=== PATIENT | female | born 1945 | race Caucasian/White ===

== ENCOUNTER 2017-06-15 14:27 | Observation (INO) | payer MEDICARE ==
[~2017-06-15] VITALS: Ht 160 cm; Wt 82.5 kg
[~2017-06-15 14:27] MED LIST: AMPH1TAB36 PO; CHLORPHENIRAMINE PO; CYMB60CA PO; DEXAMETHASONE SOD PHOS 4 MG/ML VIAL IV ONE; ESTR1 PO; GLYCOPYRROLATE 1 MG/5 ML SYRINGE IV PUSH ONE; LACTATED RINGER'S 1000 ML INJ 1,000 ML IV ONE; LIDOCAINE HCL 1% PF 5 ML SYRINGE OTHER ONE; LOVA1TAB47 PO; MONT4CHW2; NEOSTIGMINE 5 MG/5 ML SYRINGE IV PUSH ONE; OMEP20CA5 PO; ONDANSETRON HCL 4 MG/2 ML VIAL IV ONE; PHENYLEPH/NS 1000 MCG/10 ML SYR IV ONE; PROPOFOL 200 MG/20 ML AMP IV ONE; ROCURONIUM INJ 50 MG/5 ML SYRINGE IV PUSH ONE; THYR15 PO; TRAM50 PO; TRAZ50TA78 PO
[2017-06-15 14:28] VITALS: BP 149/64; PULSE 102; RESP 18; TEMP 99.1; O2SAT 98
--- NOTE | 2017-06-15 14:54 | PD ---
HPI Chief Complaint: Abdominal Pain Time Seen by Provider: 14:40 Travel History International Travel<30 days: No Contact w/Intl Traveler<30days: No Traveled to known affect area: No History of Present Illness HPI 71-year-old female with history of fibromyalgia and hypertension presents for evaluation of right lower quadrant abdominal pain. Symptoms started this morning at 4 AM. She describes it as a sharp pain in her right lower quadrant which is constant but primarily reproduced with palpation of her abdomen. She was seen at an outpatient [facility] this morning and she underwent an ultrasound of the right lower quadrant revealing "findings compatible with appendicitis given the overall sonographic appearance." This was read by radiologist Dr. Garg. She was referred here for further evaluation. She endorses some nausea. Denies vomiting, diarrhea, constipation , dysuria, flank pain. She last drank some water 30 minutes prior to this examination. Primary care physician is Dr. Goins. [facility] Past Medical History ADHD: Yes Anxiety: Yes Thyroid Disease: Yes Menopausal: Yes Tubal Ligation: Yes Past Surgical History Gynecologic Surgery: Yes (RIGHT OVARY) Hysterectomy: Yes () Tonsillectomy: Yes (AGE 2) Other Surgery: Yes (RHINOPLASTY) Social History Alcohol Use: Yes (RARELY) Tobacco Use: No Allergies-Medications (Allergen,Severity, Reaction): Coded Allergies: ofloxacin (Unverified Allergy, Mild, 06/15/17) Reported Meds & Prescriptions Reported Meds & Active Scripts Active Reported Singulair (Montelukast Sodium) 4 Mg Chew 0 UNKNOWN DOSE Lovastatin 20 Mg Tab 20 Mg PO Prilosec (Omeprazole) 20 Mg Capcr 20 Mg PO DAILY Adderall (Amphetamine/Dextroamphetamine) 20 Mg Tab 20 Mg PO DAILY Ultram (Tramadol HCl) 50 Mg Tab 50 Mg PO PRN FOR PAIN Chlor-Trimeton (Chlorpheniramine Maleate) 8 Mg Tabcr 8 Mg PO HS Desyrel (Trazodone HCl) 50 Mg Tab 50 Mg PO HS Cymbalta (Duloxetine HCl) 60 Mg Cap 60 Mg PO DAILY Estrace (Estradiol) 1 Mg Tab 1 Mg PO DAILY [place] Thyroid (Thyroid) 15 Mg Tab 2 Gr PO DAILY Review of Systems Except as stated in HPI: all other systems reviewed are Neg Physical Exam Narrative GENERAL: Pleasant well-developed well-nourished female in no acute distress. SKIN: Warm and dry. HEAD: Atraumatic. Normocephalic. EYES: Pupils equal and round. No scleral icterus. No injection or drainage. ENT: No nasal bleeding or discharge. Mucous membranes pink and moist. NECK: Trachea midline. No JVD. CARDIOVASCULAR: Regular rate and rhythm. No murmur appreciated. RESPIRATORY: No accessory muscle use. Clear to auscultation. Breath sounds equal bilaterally. GASTROINTESTINAL: Abdomen soft, focal tenderness to palpation over McBurney's point with slight involuntary guarding. There is negative Rovsing sign. MUSCULOSKELETAL: No obvious deformities. No clubbing. No cyanosis. No edema. NEUROLOGICAL: Awake and alert. No obvious cranial nerve deficits. Motor grossly within normal limits. Normal speech. PSYCHIATRIC: Appropriate mood and affect; insight and judgment normal. Data Data Last Documented VS Vital Signs Date Time Temp Pulse Resp B/P (MAP) Pulse Ox O2 Delivery O2 Flow Rate FiO2 06/15/17 15:04 18 06/15/17 14:28 99.1 102 149/64 (92) 98 Room Air Orders Orders Complete Blood Count With Diff (06/15/17 14:47) Comprehensive Metabolic Panel (06/15/17 14:47) Lipase (06/15/17 14:47) Urinalysis - C+S If Indicated (06/15/17 14:47) Iv Access Insert/Monitor (06/15/17 14:47) Ondansetron Inj (Zofran Inj) (06/15/17 15:00) Act Partial Throm Time (Ptt) (06/15/17 14:47) Prothrombin Time / Inr (Pt) (06/15/17 14:47) Ct Abd/Pel W Iv Contrast(Rout) (06/15/17 15:27) Oral Contrast - Adult (06/15/17 15:36) Electrocardiogram (06/15/17 ) Diatrizoate Liq ( Gastroview Liq) (06/15/17 15:45) Iohexol 350 Inj (Omnipaque 350 Inj) (06/15/17 17:38) Piperacil-Tazo 3.375 Gm Premix (Zosyn 3. (06/15/17 18:15) Lactated Ringer's 1000 Ml Inj (Lr 1000 M (06/15/17 18:15) Admit Order (Ed Use Only) (06/15/17 18:02) Labs Laboratory Tests Test 06/15/17 15:00 06/15/17 17:00 White Blood Count 8.8 TH/MM3 Red Blood Count 4.39 MIL/MM3 Hemoglobin 13.7 GM/DL Hematocrit 39.9 % Mean Corpuscular Volume 90.8 FL Mean Corpuscular Hemoglobin 31.2 PG Mean Corpuscular Hemoglobin Concent 34.3 % Red Cell Distribution Width 13.2 % Platelet Count 251 TH/MM3 Mean Platelet Volume 7.1 FL Neutrophils (%) (Auto) 52.6 % Lymphocytes (%) (Auto) 35.1 % Monocytes (%) (Auto) 9.2 % Eosinophils (%) (Auto) 2.5 % Basophils (%) (Auto) 0.6 % Neutrophils # (Auto) 4.6 TH/MM3 Lymphocytes # (Auto) 3.1 TH/MM3 Monocytes # (Auto) 0.8 TH/MM3 Eosinophils # (Auto) 0.2 TH/MM3 Basophils # (Auto) 0.0 TH/MM3 CBC Comment DIFF FINAL Differential Comment Prothrombin Time 10.4 SEC Prothromb Time International Ratio 1.0 RATIO Activated Partial Thromboplast Time 24.4 SEC Blood Urea Nitrogen 15 MG/DL Creatinine 0.91 MG/DL Random Glucose 116 MG/DL Total Protein 7.5 GM/DL Albumin 3.8 GM/DL Calcium Level 8.6 MG/DL Alkaline Phosphatase 61 U/L Aspartate Amino Transf (AST/SGOT) 28 U/L Alanine Aminotransferase (ALT/SGPT) 27 U/L Total Bilirubin 0.5 MG/DL Sodium Level 136 MEQ/L Potassium Level 4.0 MEQ/L Chloride Level 102 MEQ/L Carbon Dioxide Level 29.3 MEQ/L Anion Gap 5 MEQ/L Estimat Glomerular Filtration Rate 61 ML/MIN Lipase 92 U/L Urine Color LIGHT-YELLOW Urine Turbidity CLEAR Urine pH 6.0 Urine Specific [place] 1.006 Urine Protein NEG mg/dL Urine Glucose (UA) NEG mg/dL Urine Ketones NEG mg/dL Urine Occult Blood NEG Urine Nitrite NEG Urine Bilirubin NEG Urine Urobilinogen LESS THAN 2.0 MG/DL Urine Leukocyte Esterase NEG Urine WBC LESS THAN 1 /hpf Urine Squamous Epithelial Cells 1 /hpf Microscopic Urinalysis Comment CULT NOT INDICATED MDM Medical Decision Making Medical Screen Exam Complete: Yes Emergency Medical Condition: Yes Medical Record Reviewed: Yes Differential Diagnosis Appendicitis, ureteral stone, colitis, ruptured appendicitis, cystitis Narrative Course 71-year-old female who developed right lower quadrant abdominal pain early this morning presents now with ultrasound findings consistent with appendicitis. Discussed with on-call surgeon Dr. Jay who has requested CT abdomen and pelvis with IV and oral contrast. Acute abdomen and pelvis reveals CONCLUSION: 1. Mildly dilated, thick-walled appendix with periappendiceal inflammatory changes suggesting acute appendicitis. No appendiceal abscess is noted. 2. Apparent wall thickening involving the cecum which is indeterminate. This may represent focal colitis or sessile mass of the cecum. 3. Cholelithiasis. 4. 3.5 x 2.3 cm left adnexal cystic lesion. Dr. jay is agreeable with admission, q6 zosyn ordered. Diagnosis Primary Impression: Acute appendicitis Admitting Information Admitting Physician Requests: Admit Daryl Cheng Jun 15, 2017 14:54
[2017-06-15] MEDS ORDERED: ONDANSETRON HCL 4 MG/2 ML VIAL IVP ONE (15:00)
[2017-06-15 15:43] LABS: AUTOMATED NEUTROPHIL # 4.6 TH/MM3 (1.8-7.7); BASOPHIL % 0.6 % (0.0-2.0); EOSINOPHIL # 0.2 TH/MM3 (0-0.4); EOSINOPHIL % 2.5 % (0.0-4.0); HEMATOCRIT 39.9 % (35.0-46.0); HEMOGLOBIN 13.7 GM/DL (11.6-15.3); LYMPH % 35.1 % (9.0-44.0); LYMPHOCYTE # 3.1 TH/MM3 (1.0-4.8); MEAN CELL VOLUME 90.8 FL (80.0-100.0); MEAN CORPUSCULAR HEMOGLOBIN 31.2 PG (27.0-34.0); MEAN CORPUSCULAR HGB CONC 34.3 % (32.0-36.0); MEAN PLATELET VOLUME 7.1 FL (7.0-11.0); MONO % 9.2 % (0.0-8.0); MONOCYTE # 0.8 TH/MM3 (0-0.9); NEUT % 52.6 % (16.0-70.0); PLATELET COUNT 251 TH/MM3 (150-450); RED BLOOD COUNT 4.39 MIL/MM3 (4.00-5.30); RED CELL DISTRIBUTION WIDTH 13.2 % (11.6-17.2); WHITE BLOOD COUNT 8.8 TH/MM3 (4.0-11.0)
[2017-06-15] MEDS ORDERED: DIATRIZOATE MEGLUM/DIATRIZOATE SOD 9 ML CUP ONE (15:45)
[2017-06-15 15:56] LABS: PROTHROMBIN TIME - PATIENT 10.4 SEC (9.8-11.6)
[2017-06-15 16:08] LABS: ALKALINE PHOSPHATASE 61 U/L (45-117); TOTAL BILIRUBIN ADULT 0.5 MG/DL (0.2-1.0); TOTAL PROTEIN 7.5 GM/DL (6.4-8.2)
[2017-06-15 16:13] LABS: ALBUMIN 3.8 GM/DL (3.4-5.0); ALT (GPT) 27 U/L (10-53); AST (GOT) 28 U/L (15-37); BICARBONATE 29.3 MEQ/L (21.0-32.0); BLOOD UREA NITROGEN 15 MG/DL (7-18); CALCIUM 8.6 MG/DL (8.5-10.1); CHLORIDE 102 MEQ/L (98-107); CREATININE 0.91 MG/DL (0.50-1.00); GLOMERULAR FILTRATION RATE 61 ML/MIN (>89); GLUCOSE,RANDOM 116 MG/DL (74-106); SODIUM (NA) 136 MEQ/L (136-145)
[2017-06-15 16:30] VITALS: BP 115/63; PULSE 95; RESP 18; O2SAT 98
[2017-06-15 17:27] LABS: BILIRUBIN, URINE NEG (NEG); BLOOD, URINE NEG (NEG); GLUCOSE,URINE NEG (NEG); KETONE, URINE NEG (NEG); NITRITE,URINE NEG (NEG); SQUAMOUS EPITHELIAL CELL URINE 1 /hpf (0-5); URINE COLOR LIGHT-YELLOW (YELLW/STRAW); URINE LEUKOCYTE ESTERASE NEG (NEG)
[2017-06-15] MEDS ORDERED: IOHEXOL 350 MG/ML 10 ML VIAL (for RAD DIAG) IVCONTRAST ONE (17:38)
--- NOTE | 2017-06-15 18:01 | RADRPT ---
EXAM DATE/TIME: 06/15/2017 17:23 [place] COMPARISON: No previous studies available for comparison. INDICATIONS : Right lower quadrant pain. IV CONTRAST: 90 cc Omnipaque 350 (iohexol) IV ORAL CONTRAST: No oral contrast ingested. RADIATION DOSE: 15.89 CTDIvol (mGy) MEDICAL HISTORY : None SURGICAL HISTORY : Hysterectomy. ENCOUNTER: Initial ACUITY: 1 day PAIN SCALE: 6/10 LOCATION: Right lower quadrant TECHNIQUE: Volumetric scanning of the abdomen and pelvis was performed. Using automated exposure control and ad justment of the mA and/or kV according to patient size, radiation dose was kept as low as reasonably achievable to obtain optimal diagnostic quality images. DICOM format image data is available electro nically for review and comparison. FINDINGS: LOWER LUNGS: The visualized lower lungs are clear. LIVER: Homogeneous density without lesion. There is no dilation of the biliary tree. A large gallstone is n oted within the gallbladder. The wall of the gallbladder is not thickened. SPLEEN: Normal size without lesion. PANCREAS: Within normal limits. KIDNEYS: Normal in size and shape. There is no mass, stone or hydronephrosis. ADRENAL GLANDS: Within normal limits. VASCULAR: There is no aortic aneurysm. BOWEL/MESENTERY: There is evidence of a mildly dilated, thick-walled appendix with periappendiceal inflammatory change s suggesting acute appendicitis. No appendiceal abscess is noted. There is apparent wall thickening i nvolving the cecum which is indeterminate. This may represent focal colitis or sessile mass of the ce cum. ABDOMINAL WALL: Within normal limits. RETROPERITONEUM: There is no lymphadenopathy. BLADDER: No wall thickening or mass. REPRODUCTIVE: There is a 3.5 x 2.3 cm left adnexal cystic lesion likely arising from the left ovary. INGUINAL: There is no lymphadenopathy or hernia. MUSCULOSKELETAL: Within normal limits for patient age. CONCLUSION: 1. Mildly dilated, thick-walled appendix with periappendiceal inflammatory changes suggesting acute a ppendicitis. No appendiceal abscess is noted. 2. Apparent wall thickening involving the cecum which is indeterminate. This may represent focal coli tis or sessile mass of the cecum. 3. Cholelithiasis. 4. 3.5 x 2.3 cm left adnexal cystic lesion. Ulises Baez MD on June 15, 2017 at 17:52 Board Certified Radiologist. This report was verified electronically.
[2017-06-15] MEDS ORDERED: PIPERACIL-TAZO 3.375 GM PREMIX 50 ML IV SCH (18:15)
[2017-06-15 18:29] VITALS: BP 100/59; PULSE 90; RESP 18; O2SAT 99
[2017-06-15] MEDS: LACTATED RINGER'S 1000 ML INJ 1,000 ML IV SCH (18:33)
--- NOTE | 2017-06-15 18:37 | HHI.HP ---
General Surgery H&P HISTORY of PRESENT ILLNESS:: The patient is a 71-year-old lady who began having right lower quadrant abdominal pain which awakened her from sleep approximately 4:00 this morning. She was seen by an urgent care center and an ultrasound performed which suggested appendicitis. She then came to the emergency department where CT scan confirmed appendicitis. She has had no nausea or vomiting or fever. She's had no similar pains in the past. PAST MEDICAL HISTORY: Patient has had vaginal hysterectomy and left tubal ligation and diagnostic laparoscopy in the past. She has a history of mild hypertension which has been well controlled, GERD, fibromyalgia, and a mild sleep disorder. Family history, social history, and review of systems are negative except as in history of present illness. Current medications: (Allergen,Severity, Reaction): Coded Allergies: ofloxacin (Unverified Allergy, Mild, 06/15/17) Reported Meds & Prescriptions Reported Meds & Active Scripts Active Reported Singulair (Montelukast Sodium) 4 Mg Chew 0 UNKNOWN DOSE Lovastatin 20 Mg Tab 20 Mg PO Prilosec (Omeprazole) 20 Mg Capcr 20 Mg PO DAILY Adderall (Amphetamine/Dextroamphetamine) 20 Mg Tab 20 Mg PO DAILY Ultram (Tramadol HCl) 50 Mg Tab 50 Mg PO PRN FOR PAIN Chlor-Trimeton (Chlorpheniramine Maleate) 8 Mg Tabcr 8 Mg PO HS Desyrel (Trazodone HCl) 50 Mg Tab 50 Mg PO HS Cymbalta (Duloxetine HCl) 60 Mg Cap 60 Mg PO DAILY Estrace (Estradiol) 1 Mg Tab 1 Mg PO DAILY [place] Thyroid (Thyroid) 15 Mg Tab 2 Gr PO DAILY Physical exam: Vital Signs Date Time Temp Pulse Resp B/P (MAP) Pulse Ox O2 Delivery O2 Flow Rate FiO2 06/15/17 15:04 18 06/15/17 14:28 99.1 102 18 149/64 (92) 98 Room Air GEN.: Patient is a healthy-appearing, well-developed, well-nourished woman in minimal distress HEENT: Normal NECK: Supple no adenopathy or thyromegaly CHEST: Symmetrical with good breath sounds bilaterally with no rales rhonchi or wheezes. HEART: Regular rate and rhythm no murmurs or gallops ABDOMEN: Very tender in the right lower quadrant with significant voluntary guarding, but no involuntary guarding and minimal percussive rebound. EXTREMITIES: No cyanosis, clubbing, or edema. Peripheral pulses are 2+ and equal bilaterally. NEURO: Patient is alert and oriented 3. Cranial nerves are grossly intact. Laboratory Tests Test 06/15/17 15:00 06/15/17 17:00 White Blood Count 8.8 TH/MM3 Red Blood Count 4.39 MIL/MM3 Hemoglobin 13.7 GM/DL Hematocrit 39.9 % Mean Corpuscular Volume 90.8 FL Mean Corpuscular Hemoglobin 31.2 PG Mean Corpuscular Hemoglobin Concent 34.3 % Red Cell Distribution Width 13.2 % Platelet Count 251 TH/MM3 Mean Platelet Volume 7.1 FL Neutrophils (%) (Auto) 52.6 % Lymphocytes (%) (Auto) 35.1 % Monocytes (%) (Auto) 9.2 % Eosinophils (%) (Auto) 2.5 % Basophils (%) (Auto) 0.6 % Neutrophils # (Auto) 4.6 TH/MM3 Lymphocytes # (Auto) 3.1 TH/MM3 Monocytes # (Auto) 0.8 TH/MM3 Eosinophils # (Auto) 0.2 TH/MM3 Basophils # (Auto) 0.0 TH/MM3 CBC Comment DIFF FINAL Differential Comment Prothrombin Time 10.4 SEC Prothromb Time International Ratio 1.0 RATIO Activated Partial Thromboplast Time 24.4 SEC Blood Urea Nitrogen 15 MG/DL Creatinine 0.91 MG/DL Random Glucose 116 MG/DL Total Protein 7.5 GM/DL Albumin 3.8 GM/DL Calcium Level 8.6 MG/DL Alkaline Phosphatase 61 U/L Aspartate Amino Transf (AST/SGOT) 28 U/L Alanine Aminotransferase (ALT/SGPT) 27 U/L Total Bilirubin 0.5 MG/DL Sodium Level 136 MEQ/L Potassium Level 4.0 MEQ/L Chloride Level 102 MEQ/L Carbon Dioxide Level 29.3 MEQ/L Anion Gap 5 MEQ/L Estimat Glomerular Filtration Rate 61 ML/MIN Lipase 92 U/L Urine Color LIGHT-YELLOW Urine Turbidity CLEAR Urine pH 6.0 Urine Specific [place] 1.006 Urine Protein NEG mg/dL Urine Glucose (UA) NEG mg/dL Urine Ketones NEG mg/dL Urine Occult Blood NEG Urine Nitrite NEG Urine Bilirubin NEG Urine Urobilinogen LESS THAN 2.0 MG/DL Urine Leukocyte Esterase NEG Urine WBC LESS THAN 1 /hpf Urine Squamous Epithelial Cells 1 /hpf Microscopic Urinalysis Comment CULT NOT INDICATED CT scan abdomen and pelvis: Findings consistent with early acute appendicitis with minimally dilated appendix and minimal stranding in the right lower quadrant. Impression: Acute appendicitis (early). Plan: Patient was taken to the operating room for a laparoscopic appendectomy when an operating room is available (probably early a.m.). I've explained the procedure to include the risks of bleeding, infection, need for open operation, and possible need for reoperation. She understands and is agreeable to the procedure. She will be placed on antibiotics for the evening and admitted to the hospital for IV fluid and analgesics. Santiago Nixon MD Jun 15, 2017 18:37
[2017-06-15] MEDS ORDERED: TRIA1SPR6 EACH NARE (18:57)
[2017-06-15] MEDS ORDERED: FLUT1INH INH (18:57)
[2017-06-15] MEDS ORDERED: OMEP20TA93 PO (18:57)
[2017-06-15] MEDS ORDERED: VENTAER INH (18:57)
[2017-06-15] MEDS ORDERED: CHLO4TAB PO (18:57)
[2017-06-15] MEDS ORDERED: TRAM50TA PO (18:57)
[2017-06-15] MEDS ORDERED: CYMB60CA PO (18:57)
[2017-06-15] MEDS ORDERED: LISI10TA3 PO (18:57)
[2017-06-15] MEDS ORDERED: LOVA40TA PO (18:57)
[2017-06-15] MEDS ORDERED: CHOL10008 (18:57)
[2017-06-15] MEDS ORDERED: TRAZ50TA12 PO (18:57)
[2017-06-15] MEDS ORDERED: ESTR1TAB PO (18:57)
[2017-06-15] MEDS ORDERED: BUTACAP77 (18:57)
[2017-06-15] MEDS ORDERED: ARMO90TA PO (18:57)
[2017-06-15] MEDS ORDERED: MORPHINE SULFATE 2 MG/ML INJ IM PRN (20:00)
[2017-06-15 20:38] VITALS: BP 140/71; PULSE 98; RESP 18; TEMP 99.3; O2SAT 92
[2017-06-15] MEDS ORDERED: BUPIVACAINE/EPINEPHRINE 0.25% 50 ML VIAL ONE (20:44)
[2017-06-15] MEDS ORDERED: ACETAMINOPHEN 1000 MG/100 ML 100 ML IV ONE (20:49)
[2017-06-15] MEDS ORDERED: LACTATED RINGER'S 1000 ML IV PRN (21:00)
[2017-06-15] MEDS ORDERED: SODIUM CHLORID 0.9% 500 ML IV PRN (21:00)
[2017-06-15] MEDS ORDERED: CHLORHEXIDINE GLUCONATE 2 % 1 PACK (2 CLOTHS) TOPICAL PRN (21:15)
[2017-06-15] MEDS ORDERED: METOPROLOL TARTRATE 25 MG TAB PO PRN (21:15)
[2017-06-15] MEDS ORDERED: POVIDONE IODINE 5% (ANTISEPSIS KIT) 4 APPLICATIONS EACH NARE PRN (21:15)
--- NOTE | 2017-06-15 23:11 | PD.OP ---
cc: Santiago Nixon MD Operative Report Date of Surgery: Jun 15, 2017 Preoperative Diagnosis: Acute appendicitis Postoperative Diagnosis: Acute appendicitis Procedure: Laparoscopic appendectomy Anesthesia: General endotracheal Surgeon: Santiago Nixon Interior Systems Carpenter(s): None Operation and Findings: Operative findings: The patient's found to have a distended, very inflamed appendix with no evidence of perforation. The appendiceal mesentery was grossly adherent to the small bowel mesentery. No other abnormalities were noted other than adhesions and of 2 cm hernia in her lower abdomen from her previous abdominal procedures. Operative procedure: The patient was brought to the operating room and after satisfactory general endotracheal anesthesia was obtained, the abdomen was prepped and draped in usual sterile fashion. 0.5% Marcaine with epinephrine was used to infiltrate the skin for local anesthesia. A small incision was made just above the umbilicus and a 5 mm trocar was used to enter the peritoneal cavity under direct visualization. The abdomen was distended to 15 mmHg using carbon dioxide after which the camera was reinserted and visceral injury inspected for, with none being identified. Under direct visualization a 12 port was placed in the suprapubic region and another 5 port in the mid abdomen between the umbilicus and the pubis. There is a small piece of omentum adherent to the anterior abdominal wall and a portion of it was taken down to allow better visualization. The patient was rotated to the left to allow better visualization of the right lower quadrant. The area of the cecum was dissected free from adhesions which were very filmy using blunt dissection. The body of the appendix was identified and grasped and rotated anteriorly. Using blunt dissection the small bowel wasn't very was swept away from the mesentery of the appendix to free up the tip of the appendix. The mesoappendix was then taken down with a Harmonic scalpel without problem with minimal amount of bleeding. The base of the appendix was partially invested with peritoneum along the lower edge of it which was taken down with the Harmonic scalpel. Once the base of the appendix was identified as it entered the cecum, it was grasped and elevated anteriorly. A 35 wide load stapler was used to amputate the appendix at the level of the cecum. The appendix was placed within an Endo Catch bag and brought through the 12 mm port without problem where was sent for permanent pathology. The trochars reinserted and the area the mesoappendix was inspected. Small amount of blood clot was suctioned up and no bleeding was identified. The remainder of the abdomen was checked and found to be hemostatic. There was a small ooze from the omentum which was controlled with pressure after which hemostasis was again checked for and found be satisfactory. The base of the appendix was inspected and found to be intact. The carbon dioxide was then vented as completely as possible the atmosphere after which the ports were removed and the 12 mm fascial defect was inspected and found to have no evidence of direct penetration of the peritoneal cavity and a fascial closure was not accomplished due to that difference in anterior posterior defects. The skin was closed with interrupted 4-0 Monocryl subcuticular stitches. Steri- Strips were applied and the patient was then awakened and taken from the operating room, in satisfactory condition, having tolerated the procedure without problem. Estimated blood loss was less than 30 mL's. The instrument, sponge, needle counts were reported as being correct 2 at the end of the procedure. Santiago Nixon MD Jun 15, 2017 23:11
[2017-06-15] MEDS ORDERED: KETOROLAC TROMETHAMINE 30 MG/ML (IVP) VIAL IV PUSH ONE ×2 (23:30)
[2017-06-15] MEDS ORDERED: oxyCODONE/ACETAMINOPHEN 5 MG/325 MG TAB PO PRN ×2 (23:30)
[2017-06-15] MEDS ORDERED: MORPHINE SULFATE 4 MG/ML INJ IV PUSH PRN (23:30)
[2017-06-15] MEDS ORDERED: SODIUM CHLORIDE 0.9% FLUSH 10 ML FLUSH IV FLUSH PRN (23:30)
[2017-06-15] MEDS ORDERED: ONDANSETRON HCL 4 MG/2 ML VIAL IV PUSH PRN (23:30)
[2017-06-15] MEDS ORDERED: MORPHINE SULFATE 2 MG/ML INJ IV PRN (23:30)
[2017-06-15] MEDS ORDERED: DO NOT ADM ANY ANTICOAGULANT DRUGS PRN (23:45)
[2017-06-15] MEDS ORDERED: *ONDANSETRON 4 MG VIAL PERIprocedural Use ONLY ONE (23:46)
[2017-06-15] MEDS ORDERED: *morphine SULFATE 8 MG/ML PERIprocedure ONLY ONE (23:46)
[2017-06-16] MEDS ORDERED: PIPERACIL-TAZO 3.375 GM PREMIX 50 ML IV SCH
[2017-06-16] MEDS ORDERED: *morphine SULFATE 8 MG/ML PERIprocedure ONLY ONE (00:14)
[2017-06-16 00:33] VITALS: BP 131/73; PULSE 94; RESP 18; TEMP 97.1; O2SAT 97
[2017-06-16] MEDS: LACTATED RINGER'S 1000 ML INJ 1,000 ML IV SCH (01:37)
[2017-06-16 03:24] VITALS: BP 104/62; PULSE 94; RESP 18; TEMP 97.7; O2SAT 97
[2017-06-16 08:00] VITALS: BP 124/73; PULSE 86; RESP 18; TEMP 96.8; O2SAT 97
[2017-06-16] MEDS ORDERED: SODIUM CHLORIDE 0.9% FLUSH 10 ML FLUSH IV FLUSH SCH (09:00)
[2017-06-16] MEDS ORDERED: LISINOPRIL 10 MG TAB PO SCH (09:00)
[2017-06-16 12:00] VITALS: BP 134/57; PULSE 105; RESP 18; TEMP 99.5; O2SAT 95
--- NOTE | 2017-06-16 12:54 | EKG ---
Date Performed: 06/15/2017 Time Performed: 18:28:11 PTAGE: 71 years EKG: Sinus rhythm NORMAL ECG PREVIOUS TRACING : 02/27/2003 15.48 DOCTOR: Van Simmons Interpretating Date/Time 06/16/2017 12:48:52
--- NOTE | 2017-06-16 15:22 | HHI.PR ---
Subjective Subjective Notes Patient has no complaints today, other than a migraine headache. From a surgical standpoint she has made an excellent recovery. She's been out of bed walking has tolerated regular diet and is having normal bowel activity. She denies any pain. Objective Vitals/I&O Vital Signs Date Time Temp Pulse Resp B/P (MAP) Pulse Ox O2 Delivery O2 Flow Rate FiO2 06/16/17 12:00 99.5 105 18 134/57 (82) 95 06/16/17 00:15 Nasal Cannula 4 Labs Laboratory Tests Test 06/15/17 17:00 Urine Color LIGHT-YELLOW Urine Turbidity CLEAR Urine pH 6.0 Urine Specific [place] 1.006 Urine Protein NEG Urine Glucose (UA) NEG Urine Ketones NEG Urine Occult Blood NEG Urine Nitrite NEG Urine Bilirubin NEG Urine Urobilinogen LESS THAN 2.0 Urine Leukocyte Esterase NEG Urine WBC LESS THAN 1 Urine Squamous Epithelial Cells 1 Microscopic Urinalysis Comment CULT NOT INDICATED Cardiovascular: Regular Lungs: Clear Abdomen: Non-distended, Post-op tenderness, BS normal A/P Assessment and Plan Impression: Status post laparoscopic appendectomy; doing well Andujar: Patient be discharged today and will see me in the office in 10-14 days. She is instructed to call the office should she have any increasing abdominal pain, nausea, or fever. Santiago Nixon MD Jun 16, 2017 15:22
== END 2017-06-16 16:30 | disposition home or self-care (01) ==
LOC: NEPE 14:27 → UNDOADMIN 18:04 → NEDA 18:04 → N06A 20:21 → NEDA 20:21 → N06A 23:00 → INTOOBSV 23:00 → UNDODISIN 06-16 16:30
PROVIDERS: ADMIT Surgery; ATTEND Surgery
DX: K35.89 Other acute appendicitis (principal); I10 Essential (primary) hypertension; K21.9 Gastro-esophageal reflux disease without esophagitis; M79.7 Fibromyalgia
CPT/HCPCS: 00840; 44970; 74177; 80053; 81001; 83690; 85025; 85610; 85730; 88304; 93005; 96374; 99285; G0378; J0131; J1100; J1885; J2270; J2370; J2405; J2543; J2710; J3010; J7120; Q9963; Q9967